=== PATIENT | female | born 1990 | race Caucasian/White ===

== ENCOUNTER 2023-01-17 16:01 | Emergency (ER) | payer OTHER ==
[~2023-01-17] VITALS: Ht 175.3 cm; Wt 63.5 kg
[2023-01-17 16:10] VITALS: BP 119/74; TEMP 99.3; O2SAT 98
[2023-01-17] MEDS ORDERED: FLUC150T PO (16:46)
[2023-01-17 17:16] LABS: APPEARANCE,URINE CLOUDY (CLEAR); BILIRUBIN,URINE NEGATIVE (NEGATIVE); BLOOD, URINE TRACE-INTA Ery/uL (NEGATIVE); COLOR,URINE YELLOW (YELLOW); KETONES,URINE 2+ mg/dL (NEGATIVE); LEUKOCYTE ESTERASE ,URINE 1+ (NEGATIVE); NITRITE, URINE NEGATIVE (NEGATIVE); PH,URINE 6.5 (5.0-8.0); PROTEIN,URINE NEGATIVE (NEGATIVE); UGLUCOSE NEGATIVE (NEGATIVE); UROBILINOGEN,URINE 0.2 EU/dL (0.2)
[2023-01-17 17:22] LABS: PREGNANCY TEST URINE QUAL NEGATIVE (NEGATIVE)
[2023-01-17 17:46] LABS: ADD URINE CULTURE YES; BACTERIA,URINE 3+ /HPF (None Seen)
[2023-01-19 22:06] LABS: CHLAMYDIA TRACHOMATIS NAA Negative (Negative); NEISSERIA GONORRHOEAE NAA Negative (Negative)
== END 2023-01-17 17:26 | disposition home or self-care (01) ==
LOC: ER 16:04
DX: B37.31 Acute candidiasis of vulva and vagina (principal); F17.200 Nicotine dependence, unspecified, uncomplicated
CPT/HCPCS: 81001; 84703-TC; 87086-TC; 87491; 87591

== ENCOUNTER 2023-03-02 11:55 | Emergency (ER) | payer OTHER ==
[~2023-03-02] VITALS: Ht 172.7 cm; Wt 64.4 kg
[~2023-03-02 11:55] MED LIST: FLUC150T PO
[2023-03-02 12:03] VITALS: BP 114/67; TEMP 98.4; O2SAT 99
[2023-03-02] MEDS ORDERED: ALBU18HF2 INH (13:27)
== END 2023-03-02 13:43 | disposition home or self-care (01) ==
LOC: ER 12:01
DX: J98.01 Acute bronchospasm (principal); R06.2 Wheezing; F17.200 Nicotine dependence, unspecified, uncomplicated
CPT/HCPCS: 71045-TC